=== PATIENT | male | born 1935 | race Caucasian/White ===

== ENCOUNTER 2017-04-11 19:25 | Inpatient (IN) | payer OTHER ==
[~2017-04-11] VITALS: Ht 182.9 cm; Wt 77.1 kg
[2017-04-11 20:24] LABS: Urine Bacteria NONE SEEN /hpf (None Seen); Urine Blood 1+ /uL (Negative); Urine Mucus FEW (None Seen); Urine Specific Gravity 1.027 (1.001-1.035); Urine WBC 1 /hpf (0 - 3)
[2017-04-11 20:33] LABS: Alcohol, Urine < 3.0 mg/dL (0-5); Amphetamine Screen, Urine NEGATIVE (NEGATIVE); Barbiturate Scree,Urine NEGATIVE (NEGATIVE); Benzodiazephine Screen, Urine NEGATIVE (NEGATIVE); Cannabinoid Screen, Urine NEGATIVE (NEGATIVE); Cocaine Screen, Urine NEGATIVE (NEGATIVE); Opiate Scree,Urine NEGATIVE (NEGATIVE); Phencyclidine Screen, Urine NEGATIVE (NEGATIVE)
[2017-04-11 23:16] LABS: Basophils # (auto) 0 uL; Basophils % (auto) 0.3 % (0.0-2.0); Eosinophils # (auto) 0 uL; Eosinophils % (auto) 0.1 % (0.0-7.0); Hematocrit 43.5 % (41.0-53.0); Hemoglobin 14.7 g/dL (13.5-17.5); Lymphocytes # (auto) 0.4 uL; Lymphocytes % (auto) 4.4 % (10.0-50.0); Mean Corpuscular Hemoglobin 31.3 pg (28.0-32.0); Mean Corpuscular Hgb Conc. 33.8 g/dL (32.0-36.0); Mean Corpuscular Volume 92.6 fL (80.0-100.0); Monocytes # (auto) 1.2 uL; Monocytes % (auto) 13.2 % (0.0-12.0); Neutrophils # (auto) 7.2 uL; Platelet Count (auto) 155 10^3/uL (140-450); Red Cell Distribution Width 14.2 % (11.8-14.3); White Blood Cell 8.7 10^3/uL (4.4-10.8)
[2017-04-11 23:31] LABS: INR 1.05 (0.9-1.15); Partial Thromboplastin Time 29.5 sec (22.64-33.71); Prothrombin Time 11.4 sec (9.37-12.3)
[2017-04-11 23:36] LABS: Alanine Aminotransferase 17 U/L (16-61); Albumin 3.8 g/dL (3.4-5.0); Anion Gap 6 (5-15); Aspartate Aminotransferase 18 U/L (15-37); BUN/Creatinine Ratio 17.7; Blood Alcohol < 3.0 mg/dL (0-5); Blood Urea Nitrogen 20 mg/dL (7-18); Calcium 8.6 mg/dL (8.5-10.1); Carbon Dioxide 28 mmol/L (21-32); Chloride 100 mmol/L (98-107); GFR African American 80 mL/min; GFR Non-African American 66 mL/min; Glucose 156 mg/dL (74-106); Potassium 4.4 mmol/L (3.5-5.1); Sodium 134 mmol/L (136-145)
[2017-04-11 23:40] LABS: Alkaline Phosphatase 59 U/L (45-117); Bilirubin, Total 0.6 mg/dL (0.2-1.0); Total Protein 7.6 g/dL (6.4-8.2)
[2017-04-12] MEDS ORDERED: SODIUM CHLORIDE 0.9% 1,000 ML IV ONE
[2017-04-12] MEDS ORDERED: cloNIDine HCL 0.1 MG TAB PO PRN (04:45)
[2017-04-12] MEDS ORDERED: NITROGLYCERIN 0.4 MG SL TAB SL PRN (04:45)
[2017-04-12] MEDS ORDERED: ACETAMINOPHEN 325 MG TAB PO PRN (04:45)
[2017-04-12] MEDS ORDERED: MORPHINE SULFATE 4 MG/ML SYR/VIAL IV PRN (04:45)
[2017-04-12] MEDS ORDERED: ONDANSETRON HCL 4 MG/2 ML VIAL IV PRN (04:45)
[2017-04-12] MEDS ORDERED: DEXTROSE (50%) 50ML SYRG IV PRN (04:45)
[2017-04-12 05:55] VITALS: BP 150/81
[2017-04-12] MEDS: InsuLIN REG 1unit/0.01ml Soln (100units/ml) SC SCH ×3 (06:00→18:00)
[2017-04-12] MEDS: SODIUM CHLORIDE 0.9% 1,000 ML IV SCH ×2 (07:12→20:50)
[2017-04-12] MEDS: ACCU-CHEK COMFORT CURVE STRIP VI SCH ×3 (07:13→18:26)
[2017-04-12] MEDS ORDERED: OMEG100078 PO (07:16)
[2017-04-12] MEDS ORDERED: MULT1TAB61 PO (07:16)
[2017-04-12 09:00] VITALS: BP 140/90
[2017-04-12] MEDS: FAMOTIDINE 20 MG TAB PO SCH ×2 (09:58→21:57)
[2017-04-12] MEDS: ENOXAPARIN SOD 40 MG/0.4 ML SYRINGE SC SCH (09:59)
[2017-04-12 13:00] VITALS: BP 134/73
[2017-04-12 14:21] LABS: Folate (Folic Acid) 12.62 ng/mL (5.38-24)
[2017-04-12 17:00] VITALS: BP 139/72
[2017-04-12 22:00] VITALS: BP 94/50
[2017-04-13] MEDS: ACCU-CHEK COMFORT CURVE STRIP VI SCH ×3 (00:23→12:00)
[2017-04-13 05:22] VITALS: BP 98/66
[2017-04-13] MEDS: InsuLIN REG 1unit/0.01ml Soln (100units/ml) SC SCH ×3 (06:00→12:00)
[2017-04-13 09:08] LABS: RPR Non Reactive (Non Reactive)
[2017-04-13] MEDS: ENOXAPARIN SOD 40 MG/0.4 ML SYRINGE SC SCH (11:01)
[2017-04-13] MEDS: FAMOTIDINE 20 MG TAB PO SCH (11:01)
[2017-04-13] MEDS: SODIUM CHLORIDE 0.9% 1,000 ML IV SCH (11:27)
[2017-04-13 15:30] VITALS: BP 135/72
== END 2017-04-13 17:27 | DRG 93 ==
LOC: ER 19:25 → TELE 19:26 → TELE-CENTR 04-12 05:52
PROVIDERS: ADMIT Nurse Practitioner; ATTEND Internal Medicine
DX: G92 Toxic encephalopathy (principal); E11.9 Type 2 diabetes mellitus without complications; I10 Essential (primary) hypertension; R62.7 Adult failure to thrive; E78.5 Hyperlipidemia, unspecified; E78.00 Pure hypercholesterolemia, unspecified; Z79.899 Other long term (current) drug therapy; Z86.73 Personal history of transient ischemic attack (TIA), and cerebral infarction without residual deficits
CPT/HCPCS: 36415; 70450; 71046; 80053; 80307; 80320; 81001; 82607; 82746; 82962; 83605; 83880; 84443; 84484; 85025; 85610; 85730; 86592; 87040; 93005; 96360; 97163

== ENCOUNTER 2019-12-28 04:42 | Inpatient (IN) | payer MEDICARE, OTHER ==
[~2019-12-28] VITALS: Ht 182.9 cm; Wt 96.6 kg
[~2019-12-28 04:42] MED LIST: MULT1TAB61 PO; OMEG100078 PO
[2019-12-28 05:50] LABS: Basophils # (auto) 0.1 10 ^3/uL (0-0.2); Basophils % (auto) 0.4 % (0.0-2.0); Eosinophils # (auto) 0 10 ^3/uL (0-0.8); Eosinophils % (auto) 0.2 % (0.0-7.0); Hematocrit 41.2 % (41.0-53.0); Lymphocytes # (auto) 0.6 10 ^3/uL (0.4-5.4); Lymphocytes % (auto) 3.5 % (10.0-50.0); Mean Corpuscular Hemoglobin 32.4 pg (28.0-32.0); Mean Corpuscular Volume 95.1 fL (80.0-100.0); Monocytes # (auto) 1.3 10 ^3/uL (0-1.3); Monocytes % (auto) 7.7 % (0.0-12.0); Neutrophils # (auto) 14.4 10 ^3/uL (1.6-8.6); Neutrophils % (auto) 88.2 % (37.0-80.0); Platelet Count (auto) 167 10^3/uL (140-450); Red Blood Cells 4.33 10^6/uL (4.5-5.90); Red Cell Distribution Width 14.6 % (11.8-14.3); White Blood Cell 16.4 10^3/uL (4.4-10.8)
[2019-12-28 06:04] LABS: Partial Thromboplastin Time 24.2 sec (23.0-31.2)
[2019-12-28 06:11] LABS: Albumin 3.7 g/dL (3.4-5.0); Anion Gap 9 (5-15); Blood Urea Nitrogen 21 mg/dL (7-18); Calcium 8.8 mg/dL (8.5-10.1); Carbon Dioxide 22 mmol/L (21-32); Chloride 105 mmol/L (98-107); Glucose 195 mg/dL (74-106); Potassium 4.6 mmol/L (3.5-5.1); Sodium 136 mmol/L (136-145)
[2019-12-28 06:13] LABS: Lactic Acid w/Reflex 3.4 mmol/L (0.4-2.0)
[2019-12-28 06:15] LABS: Alanine Aminotransferase 36 U/L (16-61); Alkaline Phosphatase 94 U/L (45-117); Aspartate Aminotransferase 32 U/L (15-37); BUN/Creatinine Ratio 13.7; Bilirubin, Total 0.8 mg/dL (0.2-1.0); Blood Alcohol < 3.0 mg/dL (0-5); GFR African American 56 mL/min; GFR Non-African American 46 mL/min; Total Protein 7.5 g/dL (6.4-8.2)
[2019-12-28] MEDS ORDERED: LORazepam 2MG/ML-1ML VIAL IV ONE (06:15)
[2019-12-28] MEDS ORDERED: AZITHROMYCIN 500MG/ 250ML 250 ML IV ONE (07:30)
[2019-12-28] MEDS ORDERED: cefTRIAXone 1GM/50ML D5W 50 ML IV ONE (07:30)
[2019-12-28] MEDS ORDERED: SODIUM CHLORIDE 0.9% 1,000 ML IV ONE ×3 (07:45→10:00)
[2019-12-28 08:21] LABS: Urine Bacteria NONE SEEN /hpf (None Seen); Urine Blood 2+ /uL (Negative); Urine Specific Gravity 1.017 (1.001-1.035); Urine WBC 2 /hpf (0 - 3)
[2019-12-28] MEDS ORDERED: MORPHINE SULF INJ 2 MG/ML SYRINGE 1ML IV PRN ×2 (08:45)
[2019-12-28] MEDS ORDERED: NITROGLYCERIN 0.4 MG SL TAB SL PRN (08:45)
[2019-12-28] MEDS ORDERED: ACETAMINOPHEN 500 MG TAB PO PRN ×2 (08:45)
[2019-12-28] MEDS ORDERED: SODIUM CHLORIDE 0.9% 1,000 ML IV SCH ×2 (08:45→16:40)
[2019-12-28] MEDS ORDERED: ONDANSETRON HCL 4 MG/2 ML VIAL IV PRN (08:45)
[2019-12-28] MEDS ORDERED: HYDROcodone-ACET 5/325MG TAB PO PRN (08:45)
[2019-12-28] MEDS ORDERED: DEXTROSE (50%) 50ML SYRG IV PRN (09:00)
[2019-12-28] MEDS: cefTRIAXone 1GM/50ML D5W 50 ML IV SCH (09:00)
[2019-12-28 09:13] LABS: CRP High Sensitivity 0.68 mg/dL (< 0.3); Magnesium 2.2 mg/dL (1.6-2.6)
[2019-12-28] MEDS: ENOXAPARIN SOD 40 MG/0.4 ML SYRINGE SC SCH (09:39)
[2019-12-28] MEDS ORDERED: FAMOTIDINE 20 MG TAB PO SCH (10:00)
[2019-12-28] MEDS ORDERED: ZINC SULFATE 220mg CAP or TAB PO SCH (10:00)
[2019-12-28] MEDS ORDERED: ASCORBIC ACID 1,000 MG TAB PO SCH (10:00)
[2019-12-28] MEDS ORDERED: CHOLECALCIFEROL (VITD3) 2,000 UNIT CAP PO SCH (10:00)
[2019-12-28] MEDS ORDERED: ASCO500T11 PO (10:35)
[2019-12-28] MEDS ORDERED: ATOR10TA52 PO (10:35)
[2019-12-28] MEDS ORDERED: LISI-648 PO (10:35)
[2019-12-28] MEDS ORDERED: CHOL20007 PO (10:35)
[2019-12-28] MEDS ORDERED: DONE5TAB31 PO (10:35)
[2019-12-28] MEDS ORDERED: LORazepam 0.5 MG TAB PO PRN (11:15)
[2019-12-28] MEDS: ACCU-CHEK COMFORT CURVE STRIP VI SCH ×3 (11:51→20:47)
[2019-12-28] MEDS: InsuLIN REG 1unit/0.01ml Soln (100units/ml) SC SCH ×3 (11:52→20:50)
[2019-12-28] MEDS ORDERED: ALBUTEROL SULF HFA 90MCG INH 200DOSE IN SCH (14:00)
--- NOTE | 2019-12-28 15:30 | NUR ---
Telemetry admit from [facility] admitted to Telemetry unit after SBAR received. Patient oriented to ERIC CARCAMO,RN primary RN, unit, 204 room, bed, and unit policies regarding patient care and visiting hours. Patient now on continuous telemetry monitoring, tele box #[id number] and telemetry reading on arrival to unit is sr 90's. Patient arrives with hand mittens x2, and paul catheter with bright hematuria hanging to gravity free of kinks. Fall precautions in place, bed is locked and in lowest position, side rails up x2, bed alarm on, call light with in reach. Patient encouraged to call if they need something. All questions and concerns addressed, patient verbalized understanding. Note:
[2019-12-28 16:53] VITALS: BP 154/81
[2019-12-28 17:00] VITALS: BP 154/81
--- NOTE | 2019-12-28 19:05 | NUR ---
Opening Shift Note Assumed care of patient, awake and alert. Patient on room air with no S/S of distress/SOB or pain. Mittens placed bilaterally, paul in place draining bright red blood from pulling at line. Bed locked in lowest position, side rails up x2, call light within reach. Instructed on POC and to call for assist PRN, will continue to monitor for changes Q1hr and PRN.
--- NOTE | 2019-12-28 21:16 | NUR ---
PATIENT PULLING AT BLACK CATHETER, EDUCATED TO LEAVE IT IN PLACE IT WILL CAUSE TRAUMA. VERBALIZED UNDERSTANDING.
[2019-12-28 22:00] VITALS: BP 136/76
--- NOTE | 2019-12-29 00:28 | NUR ---
RESPONDED TO BED ALARM WITH PATIENT BLACK CATHETER PULLED OUT, TELE MONITOR REMOVED AND PULLING AT IV. REORIENTED HIM TO THE HOSPITAL AND TO STAY IN BED.VERBALIZED UNDERSTANDING. PATIENT STATES, "I AM LOOKING FOR MY , SHE WAS OVER THERE. I AM GETTING UP TO FIND MY WALKER" PATIENT NOW RESTING IN BED WITH SIDE RAILS UP X2, LOCKED IN LOWEST POSITION, CALL LIGHT WITHIN REACH, MITTENS PLACED BILATERALLY.
--- NOTE | 2019-12-29 00:35 | NUR ---
REFUSING BLACK CATHETER AT THIS TIME.
--- NOTE | 2019-12-29 00:56 | NUR ---
PATIENT REMOVED TELEMONITOR, PATIENT STATES, "I DON'T NEED THIS ON ME, IT WAS A MISTAKE THAT I CAME HERE" REORIENTED PATIENT TO HOSPITAL AND SITUATION, VERBALIZED UNDERSTANDING.
--- NOTE | 2019-12-29 03:42 | NUR ---
PATIENT HAS AN EPISODE OF INCONTINENCE, PROVIDED LINENS AND NEW GOWN. EDUCATED THE NEED FOR A BLACK CATHETER, PATIENT REFUSES CATHETER PLACEMENT STATING, "I DON'T NEED THAT THING, I DON'T LIKE IT." HE IS NOW RESTING IN THE LOW FOWLERS POSITION WITH NO SIGNS OF DISTRESS/SOB AT THIS TIME.
[2019-12-29 05:00] VITALS: BP 166/90
--- NOTE | 2019-12-29 05:24 | NUR ---
RECHECK BLOOD PRESSURE WITH PATIENT EXTREMITIES RELAXED, READS ; 153/68
[2019-12-29 05:39] LABS: Basophils # (auto) 0.1 10 ^3/uL (0-0.2); Basophils % (auto) 0.6 % (0.0-2.0); Eosinophils # (auto) 0 10 ^3/uL (0-0.8); Eosinophils % (auto) 0.2 % (0.0-7.0); Hemoglobin 13.5 g/dL (13.5-17.5); Lymphocytes # (auto) 0.9 10 ^3/uL (0.4-5.4); Lymphocytes % (auto) 8.4 % (10.0-50.0); Mean Corpuscular Hemoglobin 32.1 pg (28.0-32.0); Mean Corpuscular Hgb Conc. 33.7 g/dL (32.0-36.0); Mean Corpuscular Volume 95.1 fL (80.0-100.0); Monocytes # (auto) 1.2 10 ^3/uL (0-1.3); Monocytes % (auto) 10.7 % (0.0-12.0); Neutrophils # (auto) 8.7 10 ^3/uL (1.6-8.6); Neutrophils % (auto) 80.1 % (37.0-80.0); Nucleated Red Blood Cells % 0.1 %; Platelet Count (auto) 168 10^3/uL (140-450); Red Cell Distribution Width 14.7 % (11.8-14.3); White Blood Cell 10.9 10^3/uL (4.4-10.8)
[2019-12-29 05:57] LABS: Calcium 8.7 mg/dL (8.5-10.1); Potassium 4.2 mmol/L (3.5-5.1)
[2019-12-29 06:04] LABS: Albumin 3.4 g/dL (3.4-5.0); BUN/Creatinine Ratio 14.3; Bilirubin, Total 1.5 mg/dL (0.2-1.0); Total Protein 7.2 g/dL (6.4-8.2)
[2019-12-29] MEDS: ACCU-CHEK COMFORT CURVE STRIP VI SCH ×4 (06:19→21:09)
[2019-12-29] MEDS: InsuLIN REG 1unit/0.01ml Soln (100units/ml) SC SCH ×4 (06:43→21:10)
--- NOTE | 2019-12-29 06:47 | NUR ---
RESPONDED TO BED ALARM, PATIENT URINATING VIA URINAL AT THE BEDSIDE.
[2019-12-29] MEDS: ENOXAPARIN SOD 40 MG/0.4 ML SYRINGE SC SCH (07:08)
--- NOTE | 2019-12-29 08:10 | NUR ---
PATIENT BLOOD PRESSURE IS 180/108, SPOKE WITH PROCESS CHECKER HOSPITALIST AVIS LONG, INFORM PRODUCT MANUFACTURING PROFESSIONAL OF PATIENTS BLOOD PRESSURE, NEW ORDERS RECEIVED, SEE EMR FOR ORDERS.
[2019-12-29] MEDS ORDERED: hydrALAZINE HCL 20 MG/ML VL IV PRN (08:15)
[2019-12-29 08:19] VITALS: BP 180/108
--- NOTE | 2019-12-29 08:25 | NUR ---
DOCTOR SANABRIA AT BEDSIDE, NEW ORDERS RECEIVED SEE EMR FOR ORDERS.
[2019-12-29] MEDS: cefTRIAXone 1GM/50ML D5W 50 ML IV SCH (09:04)
[2019-12-29] MEDS: LISINOPRIL 10 MG TAB PO SCH (09:05)
[2019-12-29 09:43] LABS: Cholesterol 128 mg/dL (< 200)
[2019-12-29 09:46] LABS: HDL Cholesterol 38 mg/dL (40-59); LDL Cholesterol 81 mg/dL (< 100); Triglycerides 108 mg/dL (< 150)
[2019-12-29 09:59] LABS: Lactic Acid w/Reflex 2.7 mmol/L (0.4-2.0)
[2019-12-29] MEDS: ASPirin-EC 81 mg tab PO SCH ×2 (10:00→10:19)
[2019-12-29] MEDS ORDERED: FAMOTIDINE 20 MG TAB PO SCH (10:00)
[2019-12-29 10:19] LABS: Folate (Folic Acid) 15.3 ng/mL (5.38-24)
[2019-12-29] MEDS ORDERED: hydrALAZINE HCL 25 MG TAB PO PRN (10:30)
[2019-12-29] MEDS ORDERED: METOPROLOL TARTRATE 1MG/1ML-5ML VIAL IV PRN (10:30)
--- NOTE | 2019-12-29 10:47 | NUR ---
IV insertion IV access obtained, via clean sterile technique by inserting 20 gauge catheter at right forearm after 1 attempt. IV secured properly. No trauma to site. Patient tolerated well. NOTE:
[2019-12-29] MEDS: AZITHROMYCIN 500MG/ 250ML 250 ML IV SCH (11:25)
[2019-12-29] MEDS: SODIUM CHLORIDE 0.9% 1,000 ML IV SCH ×2 (11:26→19:52)
--- NOTE | 2019-12-29 11:30 | NUR ---
[facility] GRAVITY PROSPECTING OBSERVER FOR UROLOGY AT BEDSIDE ASSESSING PATIENT. PER NOP PATIENT WILL NEED CBI AND BLACK.
[2019-12-29] MEDS ORDERED: LIDOCAINE 2% JELLY 11ml (GLYDO) UR ONE (11:45)
[2019-12-29 12:13] VITALS: BP 197/99
--- NOTE | 2019-12-29 12:30 | NUR ---
BLACK CATHETER PLACED BY AVIS BABCOCK.
--- NOTE | 2019-12-29 12:33 | NUR ---
S[facility]IQ LIGHT EQUIPMENT OPERATOR AT BEDSIDE PER LIGHT EQUIPMENT OPERATOR "CONTINUE CBI UNTIL BLACK IS CLEAR THEN CLAMP IRRIGATION FOR 2-3 HOURS THEN RESTART, IF IRRIGATION IS CLEAR D/C IRRIGATION, IF BLOOD IS STILL IN BLACK CONTINUE IRRIGATION UNTIL CLEAR. PATIENT WILL NEED TO BE D/C HOME WITH BLACK AND WILL NEED TO FOLLOW UP WITH UROLOGY."
[2019-12-29] MEDS: ACETYLCYSTEINE 10 %(100MG/ML) SOL 4ML NEB SCH (14:00)
[2019-12-29] MEDS: ALBUTEROL SULF 2.5 MG/0.5ML(0.5%) NEB SOLN NEB SCH (14:00)
[2019-12-29] MEDS ORDERED: CYANOCOBALAMIN (B-12) 1000 MCG/1 ML VIAL IM ONE (15:15)
[2019-12-29 15:20] VITALS: BP 137/77
--- NOTE | 2019-12-29 16:45 | NUR ---
PT IS CONFUSED . HOLD P.T. TODAY.
[2019-12-29 17:22] VITALS: BP 147/85
--- NOTE | 2019-12-29 17:49 | NUR ---
[place] [address] [place] BLACK CATHETER AND 29895 OUT PUT. TOTAL URINE OUT PUT 2225. URINE IS STILL LIGHT PINK IN COLOR.
--- NOTE | 2019-12-29 19:40 | NUR ---
CBI 3,000 ml irrigation fluid hung, output peach color
[2019-12-29 20:00] VITALS: BP 139/74
--- NOTE | 2019-12-29 20:12 | NUR ---
Opening Shift Note Assumed care of patient, awake and alert. CBI 3,000ml infusing, paul catheter in place with light pink output, n/s infusing @ 60 ml/hr. Patient on room air with no S/S of distress/SOB or pain. Bed locked in lowest position, side rails up X2, call light within reach. Instructed on POC and to call for assist PRN, will continue to monitor for changes Q1hr and PRN.
[2019-12-29] MEDS: ATORVASTATIN 20 MG TAB PO SCH (21:09)
[2019-12-29] MEDS: IPRATROPIUM BROM 0.5 MG/2.5ML INH SOL NEB SCH (21:29)
[2019-12-30] VITALS (7 sets, daily range): BP systolic 123–161; BP diastolic 52–73
[2019-12-30 05:40] LABS: Basophils # (auto) 0.1 10 ^3/uL (0-0.2); Basophils % (auto) 0.7 % (0.0-2.0); Eosinophils # (auto) 0 10 ^3/uL (0-0.8); Eosinophils % (auto) 0.3 % (0.0-7.0); Hematocrit 36.4 % (41.0-53.0); Hemoglobin 12.4 g/dL (13.5-17.5); Lymphocytes # (auto) 1.1 10 ^3/uL (0.4-5.4); Lymphocytes % (auto) 10.9 % (10.0-50.0); Mean Corpuscular Hemoglobin 32.2 pg (28.0-32.0); Mean Corpuscular Hgb Conc. 33.9 g/dL (32.0-36.0); Mean Corpuscular Volume 95.1 fL (80.0-100.0); Monocytes # (auto) 1.2 10 ^3/uL (0-1.3); Monocytes % (auto) 12.3 % (0.0-12.0); Neutrophils # (auto) 7.6 10 ^3/uL (1.6-8.6); Neutrophils % (auto) 75.8 % (37.0-80.0); Platelet Count (auto) 157 10^3/uL (140-450); Red Blood Cells 3.83 10^6/uL (4.5-5.90); Red Cell Distribution Width 14.6 % (11.8-14.3)
[2019-12-30] MEDS: SODIUM CHLORIDE 0.9% 1,000 ML IV SCH (05:40)
--- NOTE | 2019-12-30 05:40 | NUR ---
CBI OUTPUT PEACH COLOR
[2019-12-30] MEDS: IPRATROPIUM BROM 0.5 MG/2.5ML INH SOL NEB SCH ×4 (05:50→23:17)
[2019-12-30] MEDS: ACETYLCYSTEINE 10 %(100MG/ML) SOL 4ML NEB SCH ×3 (05:52→23:18)
[2019-12-30] MEDS: ALBUTEROL SULF 2.5 MG/0.5ML(0.5%) NEB SOLN NEB SCH ×3 (05:52→23:17)
[2019-12-30] MEDS: InsuLIN REG 1unit/0.01ml Soln (100units/ml) SC SCH ×4 (06:05→22:30)
[2019-12-30] MEDS: ACCU-CHEK COMFORT CURVE STRIP VI SCH ×4 (06:06→22:30)
--- NOTE | 2019-12-30 06:11 | NUR ---
CBI TOTAL INPUT 4,000 ML TOTAL OUTPUT 7,300 TOTAL URINE OUTPUT 3,300
[2019-12-30 06:13] LABS: BUN/Creatinine Ratio 17.5; Bilirubin, Total 0.8 mg/dL (0.2-1.0); Calcium 8.4 mg/dL (8.5-10.1); Magnesium 2.5 mg/dL (1.6-2.6); Total Protein 6.7 g/dL (6.4-8.2)
--- NOTE | 2019-12-30 07:24 | NUR ---
CARE ENDORSED TO DAY ALVARADO FARMER RN. PATIENT RESTING IN BED LOCKED LOWEST POSITION, SIDE RAILS UP X2, CALL LIGHT WITHIN REACH, CBI OUTPUT PEACH COLOR. NO SIGNS OF DISTRESS/ SOB
--- NOTE | 2019-12-30 08:00 | NUR ---
Opening Shift Note Assumed care of patient, pt is awake and A&OX2 (person and place). No S/S of distress/SOB or pain. Insructed on POC and to call for assist PRN, call light within reach, bed is locked and in lowest position. Will continue to monitor for changes Q1hr and PRN.
[2019-12-30] MEDS: FAMOTIDINE 20 MG TAB PO SCH ×2 (09:14→22:30)
[2019-12-30] MEDS: LISINOPRIL 10 MG TAB PO SCH (09:15)
[2019-12-30] MEDS: CYANOCOBALAMIN 500 MCG TAB PO SCH (09:15)
[2019-12-30] MEDS: ASPirin-EC 81 mg tab PO SCH (09:16)
[2019-12-30] MEDS: AZITHROMYCIN 500MG/ 250ML 250 ML IV SCH (09:17)
[2019-12-30] MEDS: cefTRIAXone 1GM/50ML D5W 50 ML IV SCH (10:00)
[2019-12-30] MEDS ORDERED: DONEPEZIL HYDROCHLORIDE 5 MG TAB PO SCH (10:00)
--- NOTE | 2019-12-30 12:30 | NUR ---
IV insertion IV access obtained, via clean sterile technique by inserting 22 gauge catheter at LEFT WRIST after attempt(s). IV secured properly. No trauma to site. Patient tolerated well. NOTE:
--- NOTE | 2019-12-30 16:30 | NUR ---
BLACK CLAMPED URINE LIGHT.CLEAR, YELLOW NO CLOTS
--- NOTE | 2019-12-30 18:10 | NUR ---
BLACK STILL CLAMPED URINE CLEAR, YELLOW CLAMPED.
--- NOTE | 2019-12-30 19:20 | NUR ---
Opening Shift Note Patient is AOx3. Patient knows his name and where he is at. Patient does not know how he came to the hospital and says he does not know how he will get home. Patient has no s/s of distress or SOB. Patient has sitter at bedside for confusion. Rivers in place and urine is light yellow and clear. Patient bed locked in lowest position and HOB is at 45 degrees. Will continue to monitor.
[2019-12-30] MEDS: ATORVASTATIN 20 MG TAB PO SCH (22:30)
[2019-12-31 04:34] VITALS: BP 129/61
[2019-12-31 05:32] LABS: Basophils # (auto) 0.1 10 ^3/uL (0-0.2); Basophils % (auto) 0.8 % (0.0-2.0); Eosinophils # (auto) 0.1 10 ^3/uL (0-0.8); Eosinophils % (auto) 0.6 % (0.0-7.0); Hematocrit 36.5 % (41.0-53.0); Hemoglobin 12.4 g/dL (13.5-17.5); Lymphocytes # (auto) 0.8 10 ^3/uL (0.4-5.4); Lymphocytes % (auto) 9.5 % (10.0-50.0); Mean Corpuscular Hemoglobin 32.4 pg (28.0-32.0); Mean Corpuscular Volume 95.3 fL (80.0-100.0); Monocytes # (auto) 0.9 10 ^3/uL (0-1.3); Neutrophils # (auto) 6.8 10 ^3/uL (1.6-8.6); Neutrophils % (auto) 79.1 % (37.0-80.0); Platelet Count (auto) 168 10^3/uL (140-450); Red Blood Cells 3.84 10^6/uL (4.5-5.90); Red Cell Distribution Width 14.6 % (11.8-14.3); White Blood Cell 8.6 10^3/uL (4.4-10.8)
[2019-12-31 05:47] LABS: Potassium 4.1 mmol/L (3.5-5.1)
[2019-12-31 05:51] LABS: Calcium 8.6 mg/dL (8.5-10.1); Magnesium 2.4 mg/dL (1.6-2.6); Phosphorus 3.4 mg/dL (2.5-4.90)
[2019-12-31] MEDS: ALBUTEROL SULF 2.5 MG/0.5ML(0.5%) NEB SOLN NEB SCH (06:20)
[2019-12-31] MEDS: IPRATROPIUM BROM 0.5 MG/2.5ML INH SOL NEB SCH (06:20)
[2019-12-31] MEDS: ACETYLCYSTEINE 10 %(100MG/ML) SOL 4ML NEB SCH (06:20)
[2019-12-31] MEDS: ACCU-CHEK COMFORT CURVE STRIP VI SCH ×2 (06:34→11:17)
[2019-12-31] MEDS: InsuLIN REG 1unit/0.01ml Soln (100units/ml) SC SCH ×2 (06:35→11:18)
--- NOTE | 2019-12-31 06:46 | NUR ---
Patient's Called Patient's called saying she would like her to be d/c'd home. She was concerned that he may have to go home on hospice. Patient's Wendi would like to speak with the attending doctor, will pass on to Day shift RN.
[2019-12-31 08:37] VITALS: BP 142/74
[2019-12-31] MEDS: cefTRIAXone 1GM/50ML D5W 50 ML IV SCH (10:08)
[2019-12-31] MEDS: AZITHROMYCIN 500MG/ 250ML 250 ML IV SCH (10:08)
[2019-12-31] MEDS: CYANOCOBALAMIN 500 MCG TAB PO SCH (10:09)
[2019-12-31] MEDS: FAMOTIDINE 20 MG TAB PO SCH (10:09)
[2019-12-31] MEDS: ASPirin-EC 81 mg tab PO SCH (10:09)
[2019-12-31] MEDS: LISINOPRIL 10 MG TAB PO SCH (10:10)
[2019-12-31 11:38] VITALS: BP 142/72
--- NOTE | 2019-12-31 12:53 | NUR ---
Discharge instructions given as ordered. Encourage to follow up with PMD as instructed. All questions and concerns addressed. Patient verbalized understanding. Medication reconciliation form completed and copy given to patient. IV removed with catheter intact, pressure dressing applied Telemetry unit returned to ICU. Patient taken to vehicle via wheelchair with all personal belongings, accompanied by staff and family member. No distress noted at time of departure.
--- NOTE | 2019-12-31 13:37 | NUR ---
assessment re: sia consult for dc planning Patient is a 84 year old male. I spoke to patients Wendi who informed me patient lives home with her and she is patients caregiver. Patient has a cane for home use. Per Wendi patient has no needs and will return home with her on discharge. Patients PCP is Dr Gray. I informed Wendi I will continue to monitor and follow up as appropriate for any post discharge needs. Wendi verbalized understanding and agreed to discharge plan home. Addendum: 12/31/19 at 1341 by Vijaya SPENCE Amended: Links added.
[2019-12-31] MEDS ORDERED: DONEPEZIL HYDROCHLORIDE 5 MG TAB PO SCH (22:00)
== END 2019-12-31 12:55 | disposition home or self-care (01) | DRG 871 ==
LOC: EDBD 04:42 → ER 04:42 → TELE 04:43 → TELE-CENTR 15:38
PROVIDERS: ADMIT Nurse Practitioner Acute Care; ATTEND Internal Medicine
DX: A41.9 Sepsis, unspecified organism (principal); J18.9 Pneumonia, unspecified organism; G93.41 Metabolic encephalopathy; N17.0 Acute kidney failure with tubular necrosis; N39.0 Urinary tract infection, site not specified; I10 Essential (primary) hypertension; E11.65 Type 2 diabetes mellitus with hyperglycemia; E53.8 Deficiency of other specified B group vitamins; E78.5 Hyperlipidemia, unspecified; E86.0 Dehydration; F03.90 Unspecified dementia, unspecified severity, without behavioral disturbance, psychotic disturbance, mood disturbance, and anxiety; R31.9 Hematuria, unspecified; N36.8 Other specified disorders of urethra; Z20.828 Contact with and (suspected) exposure to other viral communicable diseases; Z79.82 Long term (current) use of aspirin; Z79.899 Other long term (current) drug therapy; Z79.84 Long term (current) use of oral hypoglycemic drugs; Z86.73 Personal history of transient ischemic attack (TIA), and cerebral infarction without residual deficits
CPT/HCPCS: 36415; 51702; 70450; 71045; 80048; 80053; 80061; 80320; 81001; 82607; 82728; 82746; 82962; 83036; 83605; 83735; 83880; 84100; 84443; 84484; 85025; 85610; 85730; 86141; 87040; 87086; 87426; 93005; 93306; 94640; 96365; 96368; 96375; G0378; J0696; J1815; J2405

== ENCOUNTER 2021-10-18 00:44 | Inpatient (IN) | payer MEDICARE ==
[~2021-10-18] VITALS: Ht 182.9 cm; Wt 94.6 kg
[~2021-10-18 00:44] MED LIST changes: +ASCO500T11 PO; +ATOR10TA52 PO; +CHOL20007 PO; +DONE5TAB80 PO; +LISI-716 PO
[2021-10-18] MEDS ORDERED: dilTIAZem 25 MG/5 ML VIAL IV ONE (01:15)
[2021-10-18] MEDS ORDERED: dilTIAZem HCL 50 MG/10 ML VIAL IV ONE (01:19)
[2021-10-18 01:30] LABS: Basophils # (auto) 0.1 10 ^3/uL (0-0.2); Basophils % (auto) 0.4 % (0.0-2.0); Eosinophils # (auto) 0 10 ^3/uL (0-0.8); Eosinophils % (auto) 0.1 % (0.0-7.0); Hematocrit 42.1 % (41.0-53.0); Lymphocytes # (auto) 1.3 10 ^3/uL (0.4-5.4); Lymphocytes % (auto) 8.5 % (10.0-50.0); Mean Corpuscular Hemoglobin 31.2 pg (28.0-32.0); Mean Corpuscular Hgb Conc. 33.2 g/dL (32.0-36.0); Mean Corpuscular Volume 93.9 fL (80.0-100.0); Monocytes # (auto) 0.6 10 ^3/uL (0-1.3); Monocytes % (auto) 4.2 % (0.0-12.0); Neutrophils # (auto) 12.8 10 ^3/uL (1.6-8.6); Neutrophils % (auto) 86.8 % (37.0-80.0); Nucleated Red Blood Cells % 0.1 %; Red Blood Cells 4.48 10^6/uL (4.5-5.90); Red Cell Distribution Width 15.1 % (11.8-14.3); White Blood Cell 14.7 10^3/uL (4.4-10.8)
[2021-10-18 01:43] LABS: Albumin 3.1 g/dL (3.4-5.0); BUN/Creatinine Ratio 16.9; Calcium 8.6 mg/dL (8.5-10.1); Potassium 4.1 mmol/L (3.5-5.1)
[2021-10-18 01:46] LABS: Lactic Acid w/Reflex 3.4 mmol/L (0.4-2.0)
[2021-10-18 01:54] LABS: Bilirubin, Total 1.1 mg/dL (0.2-1.0); Total Protein 6.8 g/dL (6.4-8.2)
[2021-10-18] MEDS ORDERED: cefTRIAXone 1GM/50ML D5W 50 ML IV ONE (02:15)
[2021-10-18] MEDS ORDERED: VANCOMYCIN 1GM/250ML 250 ML IV ONE (02:15)
[2021-10-18] MEDS ORDERED: dilTIAZem 125mg/125ml BAG KIT 125 ML IV ONE (02:30)
[2021-10-18] MEDS ORDERED: SODIUM CHLORIDE 0.9% 500 ML IV ONE (02:45)
[2021-10-18 03:08] LABS: Urine Bacteria FEW /hpf (None Seen); Urine Blood Negative /uL (Negative); Urine Mucus FEW (None Seen); Urine Specific Gravity 1.021 (1.001-1.035); Urine WBC 2 /hpf (0 - 3)
[2021-10-18] MEDS ORDERED: DEXTROSE (50%) 50ML SYRG IV PRN (05:00)
[2021-10-18] MEDS ORDERED: ACETAMINOPHEN 325 MG TAB PO PRN (05:00)
[2021-10-18] MEDS ORDERED: ONDANSETRON HCL 4 MG/2 ML VIAL IV PRN (05:00)
[2021-10-18] MEDS ORDERED: MORPHINE SULFATE INJ 2 MG/ml SYRG IV PRN (05:00)
[2021-10-18] MEDS ORDERED: ALBUTEROL SULF 2.5 MG/0.5ML(0.5%) NEB SOLN NEB PRN (05:00)
[2021-10-18] MEDS ORDERED: NITROGLYCERIN 0.4 MG SL TAB SL PRN (05:00)
[2021-10-18] MEDS ORDERED: HYDROcodone-ACET 5/325MG TAB PO PRN (05:00)
[2021-10-18 05:19] VITALS: BP 86/53
[2021-10-18] MEDS: InsuLIN REG 1unit/0.01ml Soln (100units/ml) SC SCH ×4 (05:44→23:27)
[2021-10-18] MEDS: ACCU-CHEK COMFORT CURVE STRIP VI SCH ×4 (05:47→23:27)
[2021-10-18] MEDS: ASCORBIC ACID 500 MG TAB PO SCH ×2 (09:09→21:50)
[2021-10-18] MEDS: ZINC SULFATE 220mg CAP or TAB PO SCH (09:10)
[2021-10-18] MEDS: MULTIPLE VITAMIN TAB PO SCH (09:10)
[2021-10-18] MEDS: ENOXAPARIN SOD 30 MG/0.3 ML SYRINGE SC SCH (09:11)
[2021-10-18] MEDS: cefTRIAXone 1GM/50ML D5W 50 ML IV SCH (09:12)
[2021-10-18] MEDS ORDERED: PANTOPRAZOLE 40 MG TAB PO SCH (10:00)
[2021-10-18] MEDS: AZITHROMYCIN 500MG/ 250ML 250 ML IV SCH (10:24)
[2021-10-18 18:00] VITALS: BP 117/56
[2021-10-18] MEDS ORDERED: RIVAROXABAN 20 MG TAB PO SCH (18:00)
[2021-10-18] MEDS: Glucerna Carbsteady SHAKE Vanilla 8oz PO SCH (18:00)
[2021-10-18] MEDS: RIVAROXABAN 15 MG TAB PO SCH (18:38)
[2021-10-18] MEDS: ATORVASTATIN 20 MG TAB PO SCH (21:50)
[2021-10-18] MEDS: DONEPEZIL HYDROCHLORIDE 5 MG TAB PO SCH (21:50)
[2021-10-18 21:51] VITALS: BP 108/59
[2021-10-19 04:56] VITALS: BP 118/65
[2021-10-19] MEDS: ACCU-CHEK COMFORT CURVE STRIP VI SCH ×4 (05:18→22:26)
[2021-10-19] MEDS: InsuLIN REG 1unit/0.01ml Soln (100units/ml) SC SCH ×4 (05:21→22:33)
[2021-10-19 06:25] LABS: Basophils # (auto) 0.1 10 ^3/uL (0-0.2); Basophils % (auto) 0.4 % (0.0-2.0); Eosinophils # (auto) 0 10 ^3/uL (0-0.8); Eosinophils % (auto) 0.2 % (0.0-7.0); Hemoglobin 12.3 g/dL (13.5-17.5); Lymphocytes # (auto) 0.6 10 ^3/uL (0.4-5.4); Mean Corpuscular Hemoglobin 30.8 pg (28.0-32.0); Mean Corpuscular Hgb Conc. 33.1 g/dL (32.0-36.0); Mean Corpuscular Volume 92.9 fL (80.0-100.0); Monocytes # (auto) 0.9 10 ^3/uL (0-1.3); Monocytes % (auto) 7.7 % (0.0-12.0); Neutrophils # (auto) 10.1 10 ^3/uL (1.6-8.6); Neutrophils % (auto) 86.7 % (37.0-80.0); Potassium 4.4 mmol/L (3.5-5.1); Red Blood Cells 3.99 10^6/uL (4.5-5.90); Red Cell Distribution Width 15.5 % (11.8-14.3); White Blood Cell 11.6 10^3/uL (4.4-10.8)
[2021-10-19 06:35] LABS: Albumin 2.7 g/dL (3.4-5.0); BUN/Creatinine Ratio 18.1; Bilirubin, Total 1.2 mg/dL (0.2-1.0); Calcium 8.1 mg/dL (8.5-10.1); Total Protein 6.4 g/dL (6.4-8.2)
[2021-10-19] MEDS: Glucerna Carbsteady SHAKE Vanilla 8oz PO SCH ×3 (08:00→17:46)
[2021-10-19 09:00] VITALS: BP 109/55
[2021-10-19] MEDS: ZINC SULFATE 220mg CAP or TAB PO SCH (09:44)
[2021-10-19] MEDS: ASCORBIC ACID 500 MG TAB PO SCH ×2 (09:44→22:26)
[2021-10-19] MEDS: MULTIPLE VITAMIN TAB PO SCH (09:45)
[2021-10-19] MEDS: ENOXAPARIN SOD 30 MG/0.3 ML SYRINGE SC SCH (09:45)
[2021-10-19] MEDS: cefTRIAXone 1GM/50ML D5W 50 ML IV SCH (09:45)
[2021-10-19] MEDS: AZITHROMYCIN 500MG/ 250ML 250 ML IV SCH (10:26)
[2021-10-19 13:00] VITALS: BP 137/68
[2021-10-19 16:16] VITALS: BP 112/62
[2021-10-19] MEDS: RIVAROXABAN 15 MG TAB PO SCH (17:46)
[2021-10-19] MEDS: DONEPEZIL HYDROCHLORIDE 5 MG TAB PO SCH (22:25)
[2021-10-19] MEDS: ATORVASTATIN 20 MG TAB PO SCH (22:26)
[2021-10-20 05:00] VITALS: BP 127/70
[2021-10-20] MEDS: InsuLIN REG 1unit/0.01ml Soln (100units/ml) SC SCH ×2 (05:44→11:14)
[2021-10-20] MEDS: ACCU-CHEK COMFORT CURVE STRIP VI SCH ×2 (05:44→11:14)
[2021-10-20 05:59] LABS: Basophils # (auto) 0 10 ^3/uL (0-0.2); Basophils % (auto) 0.7 % (0.0-2.0); Eosinophils # (auto) 0 10 ^3/uL (0-0.8); Eosinophils % (auto) 0.4 % (0.0-7.0); Hematocrit 36.7 % (41.0-53.0); Hemoglobin 12.1 g/dL (13.5-17.5); Lymphocytes # (auto) 0.6 10 ^3/uL (0.4-5.4); Lymphocytes % (auto) 7.5 % (10.0-50.0); Mean Corpuscular Hemoglobin 30.7 pg (28.0-32.0); Mean Corpuscular Hgb Conc. 32.9 g/dL (32.0-36.0); Mean Corpuscular Volume 93.1 fL (80.0-100.0); Monocytes # (auto) 0.5 10 ^3/uL (0-1.3); Neutrophils # (auto) 6.4 10 ^3/uL (1.6-8.6); Neutrophils % (auto) 84.4 % (37.0-80.0); Red Blood Cells 3.94 10^6/uL (4.5-5.90); Red Cell Distribution Width 15.3 % (11.8-14.3); White Blood Cell 7.6 10^3/uL (4.4-10.8)
[2021-10-20 06:14] LABS: Calcium 8.2 mg/dL (8.5-10.1); Potassium 4.2 mmol/L (3.5-5.1)
[2021-10-20 06:16] LABS: BUN/Creatinine Ratio 21.4
[2021-10-20 09:00] VITALS: BP 113/66
[2021-10-20] MEDS: Glucerna Carbsteady SHAKE Vanilla 8oz PO SCH ×2 (09:17→12:02)
[2021-10-20] MEDS: cefTRIAXone 1GM/50ML D5W 50 ML IV SCH (09:47)
[2021-10-20] MEDS: MULTIPLE VITAMIN TAB PO SCH (09:48)
[2021-10-20] MEDS: AZITHROMYCIN 500MG/ 250ML 250 ML IV SCH (09:48)
[2021-10-20] MEDS: ASCORBIC ACID 500 MG TAB PO SCH (09:48)
[2021-10-20] MEDS: ZINC SULFATE 220mg CAP or TAB PO SCH (09:48)
[2021-10-20] MEDS ORDERED: AMOX500T86 PO (10:45)
[2021-10-20 13:00] VITALS: BP 134/72
== END 2021-10-20 15:30 | disposition home or self-care (01) | DRG 871 ==
LOC: EDBD 00:44 → ER 00:45 → TELE 04:54 → TELE-WESTW 17:56
PROVIDERS: ADMIT Nurse Practitioner; ATTEND Internal Medicine Pulmonary Disease
DX: A41.9 Sepsis, unspecified organism (principal); J18.9 Pneumonia, unspecified organism; J96.01 Acute respiratory failure with hypoxia; J93.83 Other pneumothorax; I48.20 Chronic atrial fibrillation, unspecified; N17.9 Acute kidney failure, unspecified; E11.21 Type 2 diabetes mellitus with diabetic nephropathy; E78.5 Hyperlipidemia, unspecified; F03.90 Unspecified dementia, unspecified severity, without behavioral disturbance, psychotic disturbance, mood disturbance, and anxiety; Z86.73 Personal history of transient ischemic attack (TIA), and cerebral infarction without residual deficits; Z20.822 Contact with and (suspected) exposure to COVID-19
CPT/HCPCS: 36415; 36600; 71045; 71046; 71250; 73100; 73130; 80048; 80053; 81001; 82805; 82962; 83605; 83880; 84484; 85025; 87040; 93005; 96365; 96366; 96368; 96372; 96376; 97163; 99291; G0378; J0696; J1815